=== PATIENT | male | born 1965 | race Caucasian/White ===

== ENCOUNTER 2017-05-23 10:07 | Outpatient (CLI) | payer OTHER ==
--- NOTE | 2017-05-23 13:17 | Diagnostic Imaging Report ---
Indication: Abdominal discomfort, history of hepatitis C Technique: Lopez-scale and duplex images of the upper abdomen were obtained Comparison: 06/20/2015 Findings: Gallbladder demonstrates a 4 mm non-shadowing wall adherent structure, also evident previously. There is questionably a second smaller polyp adjacent to this, not previously evident. No gallstones are demonstrated. Common bile duct measures 3 mm in diameter. No intrahepatic biliary ductal dilatation. Liver demonstrates normal echogenicity, no focal abnormality. No surface nodularity Portal vein and hepatic veins are patent. Pancreas is unremarkable. Spleen is unremarkable. Left kidney measures 12.5 cm in length. Right kidney measures 10.7 cm length. Left kidney demonstrates a 15 mm cyst. There is no hydronephrosis. No focal abnormality . Non-aneurysmal abdominal aorta . Impression: 4 mm gallbladder polyp, also demonstrated previously. Questionable smaller second polyp as well Negative for gallstones or dilated ducts Unremarkable liver
== END 2017-05-23 12:07 | disposition home or self-care (01) ==
LOC: ULS 10:07
DX: K82.4 Cholesterolosis of gallbladder (principal); Z86.19 Personal history of other infectious and parasitic diseases
CPT/HCPCS: 76700